=== PATIENT | female | born 1995 | race Caucasian/White ===

== ENCOUNTER 2016-07-14 12:41 | Emergency (ER) | payer MEDICAID, OTHER ==
[~2016-07-14] VITALS: Wt 62.0 kg
[2016-07-14] MEDS ORDERED: LIDOCAINE/MYLANTA 40 ML BTL PO STA (14:43)
[2016-07-14] MEDS ORDERED: LIDOCAINE 2% VISC 15 ML CUP PO ONE (15:00)
[2016-07-14] MEDS ORDERED: OMEP40CA6 PO (16:43)
--- NOTE | 2016-07-14 16:47 | ERD ---
ER Documentation Chief Complaint Date/Time DATE: 07/14/16 TIME: 16:46 Chief Complaint upper abd pain for the past month. no nausea no vomiting. no dysuria HPI This is a 20-year-old female complains of left upper quadrant pain for the past 3 days that occurs after eating. She describes the pain is burning and occurs within 5 minutes of eating. No vomiting no nausea no back pain no dysuria no diarrhea no fever cough shortness of breath. She has tried antacids with minimal help ROS All systems reviewed and are negative except as per history of present illness. Medications Home Meds Active Scripts Omeprazole* (Omeprazole*) 40 Mg Capsule., 40 MG PO DAILY, #10 CAP Prov:LUCAS HARTLEY DO 07/14/16 PMhx/Soc Medical and Surgical Hx: pt denies Medical Hx, pt denies Surgical Hx Hx Alcohol Use: No Hx Tobacco Use: No FmHx Family History: No coronary disease Physical Exam Vitals Vital Signs Date Time Temp Pulse Resp B/P Pulse Ox O2 Delivery O2 Flow Rate FiO2 07/14/16 13:10 98.2 91 21 128/68 98 Physical Exam Const: Well-developed, well-nourished Head: Atraumatic, normocephalic Eyes: Normal Conjunctiva, PERRLA, EOMI, normal sclera, no nystagmus ENT: Normal External Ears, Nose and Mouth, moist mucus membranes. Neck: Full range of motion. No meningismus, no lymphadenopathy. Resp: Clear to auscultation bilaterally, no wheezing, rhonchi, rales Cardio: Regular rate and rhythm, no murmurs, S1 S2 present Abd: Soft, mild left upper quadrant tenderness non distended. Normal bowel sounds, no guarding or rebound, no pulsitile abdominal masses or bruits Skin: No petechiae or rashes, no ecchymosis , no maculopapular rash Back: No midline or flank tenderness Ext: No cyanosis, or edema, FROM x 4, normal inspection, neurovascularly intact x 4 Neur: Awake and alert, STR 5/5 x 4, sensation intact x 4, no focal findings, cerebellum intact Psych: Normal Mood and Affect Results 24 hrs Current Medications Medications (Trade) Dose Ordered Sig/Shay Route PRN Reason Start Time Stop Time Status Last Admin Dose Admin Miscellaneous Medication (Gi Cocktail (2)) 40 ml ONCE STAT PO 07/14/16 14:43 07/14/16 14:44 DC 07/14/16 15:30 Lidocaine (Xylocaine (Viscous)) 15 ml ONCE ONCE PO 07/14/16 15:00 07/14/16 15:01 DC 07/14/16 15:30 Procedures/MDM GI cocktail brought the pain from a 9 out of 10 to a 4 out of 10 Discussed with her proper diet care do omeprazole 10 days Departure Diagnosis: Primary Impression: Dyspepsia Condition: Stable Patient Instructions: Gastritis Vs. Ulcer Additional Instructions: take 1 tablespoon of maalox before meals LUCAS HARTLEY DO Jul 14, 2016 16:47
[2016-07-14 17:10] VITALS: BP 130/65; PULSE 66; RESP 18; TEMP 98.2
== END 2016-07-14 17:10 | disposition home or self-care (01) ==
LOC: FTE 12:41
DX: R10.13 Epigastric pain (principal)
CPT/HCPCS: Z7502; Z7610; 99283